=== PATIENT | female | born 1975 | race Two or more races ===

== ENCOUNTER 2020-02-29 22:36 | Inpatient (IN) | payer MEDICAID ==
[~2020-02-29] VITALS: Ht 157.5 cm; Wt 59.3 kg
[2020-02-29 23:52] LABS: Basophils # (auto) 0.1 10 ^3/uL (0-0.2); Basophils % (auto) 1.3 % (0.0-2.0); Eosinophils # (auto) 0.3 10 ^3/uL (0-0.8); Eosinophils % (auto) 2.9 % (0.0-7.0); Hematocrit 36.5 % (36.0-46.0); Hemoglobin 12.2 g/dL (12.2-16.2); Lymphocytes # (auto) 1.8 10 ^3/uL (0.4-5.4); Lymphocytes % (auto) 17.9 % (10.0-50.0); Mean Corpuscular Hgb Conc. 33.5 g/dL (32.0-36.0); Mean Corpuscular Volume 95.4 fL (80.0-100.0); Monocytes # (auto) 0.7 10 ^3/uL (0-1.3); Monocytes % (auto) 6.8 % (0.0-12.0); Neutrophils % (auto) 71.1 % (37.0-80.0); Nucleated Red Blood Cells % 0.1 %; Platelet Count (auto) 237 10^3/uL (140-450); Red Blood Cells 3.82 10^6/uL (4.0-5.20); Red Cell Distribution Width 14.4 % (11.8-14.3); White Blood Cell 9.8 10^3/uL (4.4-10.8)
[2020-03-01 00:11] LABS: Albumin 3.8 g/dL (3.4-5.0); BUN/Creatinine Ratio 3.8; Calcium 7.4 mg/dL (8.5-10.1); Potassium 3.5 mmol/L (3.5-5.1)
[2020-03-01 00:14] LABS: Bilirubin, Total 0.5 mg/dL (0.2-1.0); Total Protein 7.4 g/dL (6.4-8.2)
[2020-03-01 00:20] LABS: Urine Bacteria FEW /hpf (None Seen); Urine Blood 1+ /uL (Negative); Urine Specific Gravity 1.012 (1.001-1.035); Urine WBC 26 /hpf (0 - 5)
[2020-03-01] MEDS ORDERED: metroNIDAZOLE 500MG/100ML 100 ML IV ONE (08:00)
[2020-03-01] MEDS ORDERED: cefTRIAXone 1GM/50ML D5W 50 ML IV ONE (08:00)
[2020-03-01] MEDS ORDERED: LORazepam 0.5 MG TAB PO PRN (15:15)
[2020-03-01] MEDS ORDERED: HYDROcodone-ACET 5/325MG TAB PO PRN (15:15)
[2020-03-01] MEDS ORDERED: MORPHINE SULF INJ 2 MG/ML SYRINGE 1ML IV PRN (15:15)
[2020-03-01] MEDS ORDERED: DOCUSATE SOD 100 MG CAP PO PRN (15:15)
[2020-03-01] MEDS ORDERED: ALUM & MAG HYDROX-SIMETH LIQ(MAALOX) 30 ML PO PRN (15:15)
[2020-03-01] MEDS: SODIUM CHLORIDE 0.9% 1,000 ML IV SCH (15:36)
[2020-03-01] MEDS: MORPHINE SULF INJ 2 MG/ML SYRINGE 1ML IV PRN ×2 (16:38→21:40)
[2020-03-01 17:36] VITALS: BP 140/82
[2020-03-01] MEDS ORDERED: VANCOMYCIN PER PHARMACY 0 MG IV SCH (18:00)
[2020-03-01] MEDS ORDERED: CALCIUM ACETATE 667 MG CAP PO ONE (18:00)
[2020-03-01] MEDS ORDERED: BACL10TA PO (18:08)
[2020-03-01] MEDS ORDERED: GABA100C9 PO (18:08)
[2020-03-01] MEDS ORDERED: CALC0.5C PO (18:08)
[2020-03-01] MEDS ORDERED: CIPR500T4 PO (18:08)
[2020-03-01] MEDS ORDERED: CLON0.1T PO (18:08)
[2020-03-01] MEDS ORDERED: AMLO5TAB15 PO (18:08)
[2020-03-01] MEDS ORDERED: LISI-646 PO (18:08)
[2020-03-01] MEDS ORDERED: FAMOTIDINE 20 MG TAB PO ONE (18:15)
[2020-03-01] MEDS ORDERED: hydrALAZINE HCL 20 MG/ML VL IV PRN (18:15)
[2020-03-01] MEDS ORDERED: VANCOMYCIN 1GM/250ML 250 ML IV ONE (19:00)
[2020-03-01 19:23] LABS: % Iron Saturation 21.3 % (15-50)
[2020-03-01] MEDS: PIPERACILLIN-TAZOB 2.25GM 50 ML IV SCH (21:38)
[2020-03-01] MEDS: ATORVASTATIN 20 MG TAB PO SCH (21:39)
[2020-03-01 22:00] VITALS: BP 145/67
[2020-03-01] MEDS ORDERED: CLINDAMYCIN 600MG IV 50 ML IV SCH (22:00)
[2020-03-01] MEDS: hydrALAZINE HCL 25 MG TAB PO SCH (22:04)
[2020-03-02] MEDS: NITROGLYCERIN 0.4 MG SL TAB SL PRN ×3 (01:17→03:26)
[2020-03-02] MEDS: ONDANSETRON HCL 4 MG/2 ML VIAL IV PRN ×4 (04:27→20:44)
[2020-03-02 05:00] VITALS: BP 140/68
[2020-03-02] MEDS: hydrALAZINE HCL 25 MG TAB PO SCH (05:01)
[2020-03-02] MEDS: MORPHINE SULF INJ 2 MG/ML SYRINGE 1ML IV PRN ×3 (05:02→20:44)
[2020-03-02] MEDS ORDERED: FUROSEMIDE 20 MG/2 ML VIAL IV SCH ×2 (06:00→11:00)
[2020-03-02 07:10] LABS: Basophils # (auto) 0.1 10 ^3/uL (0-0.2); Eosinophils # (auto) 0.3 10 ^3/uL (0-0.8); Hematocrit 34.2 % (36.0-46.0); Hemoglobin 11.5 g/dL (12.2-16.2); Lymphocytes # (auto) 0.7 10 ^3/uL (0.4-5.4); Lymphocytes % (auto) 7.5 % (10.0-50.0); Mean Corpuscular Hemoglobin 31.9 pg (28.0-32.0); Mean Corpuscular Hgb Conc. 33.7 g/dL (32.0-36.0); Mean Corpuscular Volume 94.9 fL (80.0-100.0); Monocytes # (auto) 0.5 10 ^3/uL (0-1.3); Monocytes % (auto) 5.3 % (0.0-12.0); Neutrophils # (auto) 8.3 10 ^3/uL (1.6-8.6); Neutrophils % (auto) 83.2 % (37.0-80.0); Nucleated Red Blood Cells % 0.1 %; Platelet Count (auto) 181 10^3/uL (140-450); Red Cell Distribution Width 14.4 % (11.8-14.3); White Blood Cell 9.9 10^3/uL (4.4-10.8)
[2020-03-02 07:25] LABS: Partial Thromboplastin Time 27.9 sec (23.64-32.05)
[2020-03-02 07:36] LABS: Calcium 6.5 mg/dL (8.5-10.1); Magnesium 2.3 mg/dL (1.6-2.6); Potassium 3.5 mmol/L (3.5-5.1)
[2020-03-02 07:42] LABS: BUN/Creatinine Ratio 4.6; Bilirubin, Total 0.5 mg/dL (0.2-1.0); Phosphorus 6.5 mg/dL (2.5-4.90); Total Protein 5.9 g/dL (6.4-8.2)
[2020-03-02 07:52] LABS: Urine Bacteria NONE SEEN /hpf (None Seen); Urine Blood TRACE /uL (Negative); Urine Specific Gravity 1.009 (1.001-1.035); Urine WBC 40 /hpf (0 - 5)
[2020-03-02] MEDS: SODIUM CHLORIDE 0.9% 1,000 ML IV SCH (07:53)
[2020-03-02 08:00] VITALS: BP 125/69
[2020-03-02] MEDS ORDERED: CALCIUM ACETATE 667 MG CAP PO SCH (08:00)
[2020-03-02 08:12] LABS: Alcohol, Urine < 3.0 mg/dL (0-10); Amphetamine Screen, Urine NEGATIVE (NEGATIVE); Barbiturate Scree,Urine NEGATIVE (NEGATIVE); Benzodiazephine Screen, Urine NEGATIVE (NEGATIVE); Cannabinoid Screen, Urine NEGATIVE (NEGATIVE); Cocaine Screen, Urine NEGATIVE (NEGATIVE); Opiate Scree,Urine NEGATIVE (NEGATIVE); Phencyclidine Screen, Urine NEGATIVE (NEGATIVE)
[2020-03-02] MEDS ORDERED: cefTRIAXone 1GM/50ML D5W 50 ML IV SCH (09:00)
[2020-03-02] MEDS: FAMOTIDINE 20 MG TAB PO SCH (09:30)
[2020-03-02] MEDS: PIPERACILLIN-TAZOB 2.25GM 50 ML IV SCH ×2 (09:30→21:30)
[2020-03-02] MEDS: CHOLECALCIFEROL (VITD3) 1,000UNIT=25mCg TAB PO SCH (09:31)
[2020-03-02] MEDS: ENOXAPARIN SOD 30 MG/0.3 ML SYRINGE SC SCH (09:31)
[2020-03-02] MEDS: ADENOSINE 52 MG in GIVE UN-DILUTED 0 ML IV STA (10:37)
[2020-03-02] MEDS: CALCIUM ACETATE 667 MG CAP PO SCH ×3 (11:00→17:57)
[2020-03-02] MEDS ORDERED: SODIUM CHL 0.9% 1000 ML BAG XX ONE (11:00)
[2020-03-02] MEDS ORDERED: DEXTROSE (50%) 50ML SYRG IV PRN (14:30)
[2020-03-02] MEDS ORDERED: SODIUM CHLORIDE 0.9% 1,000 ML IV SCH (14:30)
[2020-03-02 17:20] VITALS: BP 151/75
[2020-03-02] MEDS: ACCU-CHEK COMFORT CURVE STRIP VI SCH ×2 (17:52→21:31)
[2020-03-02] MEDS: InsuLIN REG 1unit/0.01ml Soln (100units/ml) SC SCH ×2 (17:58→21:34)
[2020-03-02] MEDS: ATORVASTATIN 20 MG TAB PO SCH (21:30)
[2020-03-02] MEDS: METOPROLOL TARTRATE 25 MG TAB PO SCH (21:31)
[2020-03-02 21:35] VITALS: BP 154/77
[2020-03-03 04:54] VITALS: BP 148/84
[2020-03-03] MEDS: InsuLIN REG 1unit/0.01ml Soln (100units/ml) SC SCH ×4 (06:03→22:00)
[2020-03-03] MEDS: ACCU-CHEK COMFORT CURVE STRIP VI SCH ×4 (06:04→22:28)
[2020-03-03 07:10] LABS: Basophils # (auto) 0.1 10 ^3/uL (0-0.2); Basophils % (auto) 0.9 % (0.0-2.0); Eosinophils # (auto) 0.3 10 ^3/uL (0-0.8); Eosinophils % (auto) 3.8 % (0.0-7.0); Hematocrit 34.9 % (36.0-46.0); Hemoglobin 11.6 g/dL (12.2-16.2); Lymphocytes % (auto) 13.5 % (10.0-50.0); Mean Corpuscular Hemoglobin 31.4 pg (28.0-32.0); Mean Corpuscular Hgb Conc. 33.2 g/dL (32.0-36.0); Mean Corpuscular Volume 94.6 fL (80.0-100.0); Monocytes # (auto) 0.5 10 ^3/uL (0-1.3); Monocytes % (auto) 7.6 % (0.0-12.0); Neutrophils # (auto) 5.3 10 ^3/uL (1.6-8.6); Neutrophils % (auto) 74.2 % (37.0-80.0); Platelet Count (auto) 184 10^3/uL (140-450); Red Cell Distribution Width 14.5 % (11.8-14.3); White Blood Cell 7.1 10^3/uL (4.4-10.8)
[2020-03-03 07:50] LABS: Albumin 3.1 g/dL (3.4-5.0); BUN/Creatinine Ratio 2.9; Bilirubin, Total 0.6 mg/dL (0.2-1.0); Calcium 7.3 mg/dL (8.5-10.1); Phosphorus 5.3 mg/dL (2.5-4.90); Total Protein 6.4 g/dL (6.4-8.2)
[2020-03-03 08:00] VITALS: BP 148/78
[2020-03-03] MEDS: CALCIUM ACETATE 667 MG CAP PO SCH ×3 (08:00→18:35)
[2020-03-03] MEDS: ONDANSETRON HCL 4 MG/2 ML VIAL IV PRN (08:12)
[2020-03-03 08:54] VITALS: BP 160/83
[2020-03-03] MEDS: PIPERACILLIN-TAZOB 2.25GM 50 ML IV SCH ×2 (10:48→22:27)
[2020-03-03] MEDS: MORPHINE SULF INJ 2 MG/ML SYRINGE 1ML IV PRN (10:50)
[2020-03-03] MEDS: ENOXAPARIN SOD 30 MG/0.3 ML SYRINGE SC SCH (10:51)
[2020-03-03] MEDS: FAMOTIDINE 20 MG TAB PO SCH (10:52)
[2020-03-03] MEDS: CHOLECALCIFEROL (VITD3) 1,000UNIT=25mCg TAB PO SCH (10:52)
[2020-03-03] MEDS: B-COMPLEX W/ C & FOLIC ACID(NEPHROVITE TAB) PO SCH (10:52)
[2020-03-03] MEDS: LISINOPRIL 5 MG TAB PO SCH (10:53)
[2020-03-03] MEDS: ASPirin-EC 81 mg tab PO SCH (10:53)
[2020-03-03] MEDS: METOPROLOL TARTRATE 25 MG TAB PO SCH ×2 (10:54→22:28)
[2020-03-03 11:35] VITALS: BP 144/76
[2020-03-03 16:44] VITALS: BP 164/75
[2020-03-03] MEDS: PROMETHAZINE HCL 25 MG/ML 1ML IV PRN (17:12)
[2020-03-03 22:00] VITALS: BP 160/90
[2020-03-03] MEDS: ATORVASTATIN 20 MG TAB PO SCH (22:27)
[2020-03-04 04:46] LABS: Basophils # (auto) 0.1 10 ^3/uL (0-0.2); Basophils % (auto) 1.2 % (0.0-2.0); Eosinophils # (auto) 0.4 10 ^3/uL (0-0.8); Eosinophils % (auto) 4.5 % (0.0-7.0); Hematocrit 33.5 % (36.0-46.0); Hemoglobin 11.1 g/dL (12.2-16.2); Lymphocytes # (auto) 1.4 10 ^3/uL (0.4-5.4); Lymphocytes % (auto) 17.3 % (10.0-50.0); Mean Corpuscular Hemoglobin 31.6 pg (28.0-32.0); Mean Corpuscular Hgb Conc. 33.3 g/dL (32.0-36.0); Mean Corpuscular Volume 94.9 fL (80.0-100.0); Monocytes # (auto) 0.8 10 ^3/uL (0-1.3); Monocytes % (auto) 9.5 % (0.0-12.0); Neutrophils # (auto) 5.6 10 ^3/uL (1.6-8.6); Neutrophils % (auto) 67.5 % (37.0-80.0); Platelet Count (auto) 174 10^3/uL (140-450); Red Blood Cells 3.53 10^6/uL (4.0-5.20); Red Cell Distribution Width 14.5 % (11.8-14.3); White Blood Cell 8.3 10^3/uL (4.4-10.8)
[2020-03-04 05:00] VITALS: BP 143/85
[2020-03-04 05:03] LABS: Calcium 7.3 mg/dL (8.5-10.1); Potassium 3.8 mmol/L (3.5-5.1)
[2020-03-04 05:05] LABS: BUN/Creatinine Ratio 3.1
[2020-03-04 05:06] LABS: INR 1.01 (0.9-1.15); Partial Thromboplastin Time 28.8 sec (23.64-32.05)
[2020-03-04] MEDS: InsuLIN REG 1unit/0.01ml Soln (100units/ml) SC SCH ×5 (06:35→23:02)
[2020-03-04] MEDS: ACCU-CHEK COMFORT CURVE STRIP VI SCH ×4 (06:35→21:15)
[2020-03-04] MEDS ORDERED: SODIUM CHL 0.9% 1000 ML BAG XX ONE (07:00)
[2020-03-04] MEDS: CALCIUM ACETATE 667 MG CAP PO SCH ×3 (07:55→18:04)
[2020-03-04 08:00] VITALS: BP 133/65
[2020-03-04 08:39] VITALS: BP 133/65
[2020-03-04] MEDS: FAMOTIDINE 20 MG TAB PO SCH (09:33)
[2020-03-04] MEDS: ASPirin-EC 81 mg tab PO SCH (09:33)
[2020-03-04] MEDS: LISINOPRIL 5 MG TAB PO SCH (09:34)
[2020-03-04] MEDS: B-COMPLEX W/ C & FOLIC ACID(NEPHROVITE TAB) PO SCH (09:34)
[2020-03-04] MEDS: METOPROLOL TARTRATE 25 MG TAB PO SCH ×2 (09:34→21:15)
[2020-03-04] MEDS: ENOXAPARIN SOD 30 MG/0.3 ML SYRINGE SC SCH (09:35)
[2020-03-04] MEDS: CHOLECALCIFEROL (VITD3) 1,000UNIT=25mCg TAB PO SCH (09:35)
[2020-03-04] MEDS: PIPERACILLIN-TAZOB 2.25GM 50 ML IV SCH ×2 (09:35→21:14)
[2020-03-04] MEDS ORDERED: ANGIOMAX 250 MG VIAL IV ONE (11:21)
[2020-03-04] MEDS ORDERED: MIDAZOLAM HCL 1MG/1ML-2 ML VIAL ONE (11:22)
[2020-03-04] MEDS ORDERED: SODIUM CHL 0.9% 0 ML ONE (11:22)
[2020-03-04] MEDS ORDERED: VERAPAMIL 2.5MG/ML INJ 2ML VIAL IV ONE (11:22)
[2020-03-04] MEDS ORDERED: LIDOCAINE 2%HCL (LOCAL ANESTH.) INJ 20ML MDV ONE (11:22)
[2020-03-04] MEDS ORDERED: NITROGLYCERIN 50MG/250ML 250 ML IV ONE (11:22)
[2020-03-04] MEDS ORDERED: fentaNYL CITRATE 100 MCG/2 ML VL ONE (11:22)
[2020-03-04] MEDS ORDERED: IOHEXOL 350 MG/ML 100ML IJ ONE (11:23)
[2020-03-04 11:57] LABS: Hepatitis B Surface Antigen Negative (Negative); Hepatitis C Antibody Negative (Negative)
[2020-03-04] MEDS ORDERED: HEPARIN SODIUM (PORCINE) 5000 UNITS/ML 1ML VIAL ONE (12:00)
[2020-03-04] MEDS ORDERED: hydrALAZINE HCL 20 MG/ML VL ONE (12:15)
[2020-03-04 12:43] VITALS: BP 159/74
[2020-03-04] MEDS ORDERED: GOLYTELY 4L KIT PO ONE (16:00)
[2020-03-04 16:15] VITALS: BP 138/74
[2020-03-04] MEDS: ATORVASTATIN 20 MG TAB PO SCH (21:14)
[2020-03-04 22:12] VITALS: BP 118/66
[2020-03-05] MEDS: PROMETHAZINE HCL 25 MG/ML 1ML IV PRN (01:57)
[2020-03-05] MEDS: ACCU-CHEK COMFORT CURVE STRIP VI SCH ×3 (04:56→17:00)
[2020-03-05] MEDS: InsuLIN REG 1unit/0.01ml Soln (100units/ml) SC SCH ×3 (04:57→17:00)
[2020-03-05 05:10] VITALS: BP 105/53
[2020-03-05] MEDS ORDERED: GOLYTELY 4L KIT PO ONE (06:00)
[2020-03-05] MEDS ORDERED: MAGNESIUM CITRATE SOLUTION 300 ML BTL PO ONE (06:00)
[2020-03-05] MEDS: CALCIUM ACETATE 667 MG CAP PO SCH ×3 (08:00→17:08)
[2020-03-05 09:00] VITALS: BP 106/48
[2020-03-05] MEDS ORDERED: SODIUM CHLORIDE LOCK 10 ML ONE (09:12)
[2020-03-05] MEDS ORDERED: diphenhdrAMINE HCL 50 MG/1 ML VL ONE (09:12)
[2020-03-05] MEDS: METOPROLOL TARTRATE 25 MG TAB PO SCH (09:50)
[2020-03-05] MEDS: ENOXAPARIN SOD 30 MG/0.3 ML SYRINGE SC SCH (09:51)
[2020-03-05] MEDS: LISINOPRIL 5 MG TAB PO SCH (09:51)
[2020-03-05] MEDS: CHOLECALCIFEROL (VITD3) 1,000UNIT=25mCg TAB PO SCH (09:52)
[2020-03-05] MEDS: FAMOTIDINE 20 MG TAB PO SCH (09:52)
[2020-03-05] MEDS: B-COMPLEX W/ C & FOLIC ACID(NEPHROVITE TAB) PO SCH (09:52)
[2020-03-05] MEDS: PIPERACILLIN-TAZOB 2.25GM 50 ML IV SCH (09:52)
[2020-03-05] MEDS: ASPirin-EC 81 mg tab PO SCH (09:52)
[2020-03-05] MEDS ORDERED: levoFLOXacin 500 MG TAB PO SCH (12:45)
[2020-03-05] MEDS ORDERED: CHOL1000 PO (12:51)
[2020-03-05] MEDS ORDERED: LEVO500T21 PO (12:51)
[2020-03-05] MEDS ORDERED: LISI-646 PO (12:51)
[2020-03-05] MEDS ORDERED: CALC667C5 PO (12:51)
[2020-03-05] MEDS ORDERED: NEPVITT PO (12:51)
[2020-03-05] MEDS ORDERED: METR500T PO (12:51)
[2020-03-05 13:00] VITALS: BP 97/57
[2020-03-05] MEDS ORDERED: metroNIDAZOLE 500 MG TAB PO SCH (14:00)
[2020-03-05] MEDS: fentaNYL CITRATE 100 MCG/2 ML VL ONE ×3 (14:22→14:32)
[2020-03-05] MEDS: MIDAZOLAM HCL 5 MG/ML-1ML VIAL ONE ×3 (14:22→14:36)
[2020-03-05 16:00] VITALS: BP 122/58
[2020-03-05 16:39] VITALS: BP 140/75
[2020-03-06] MEDS ORDERED: SODIUM CHL 0.9% 1000 ML BAG XX ONE (07:00)
== END 2020-03-05 17:00 | disposition home or self-care (01) | DRG 249 ==
LOC: ER 22:43 → TELE 22:44 → TELE-CENTR 03-01 17:42
PROVIDERS: ADMIT Hospitalist; ATTEND Internal Medicine
PROC: 5A1D70Z Performance of Urinary Filtration, Intermittent, Less than 6 Hours Per Day (ICD-10-PCS; 2020-03-02)
PROC: 4A023N7 Measurement of Cardiac Sampling and Pressure, Left Heart, Percutaneous Approach (ICD-10-PCS; principal; 2020-03-04)
PROC: B2111ZZ Fluoroscopy of Multiple Coronary Arteries using Low Osmolar Contrast (ICD-10-PCS; 2020-03-04)
PROC: B2151ZZ Fluoroscopy of Left Heart using Low Osmolar Contrast (ICD-10-PCS; 2020-03-04)
PROC: 5A1D70Z Performance of Urinary Filtration, Intermittent, Less than 6 Hours Per Day (ICD-10-PCS; 2020-03-04)
PROC: 0DJD8ZZ Inspection of Lower Intestinal Tract, Via Natural or Artificial Opening Endoscopic (ICD-10-PCS; 2020-03-05)
DX: A09 Infectious gastroenteritis and colitis, unspecified (principal); I13.2 Hypertensive heart and chronic kidney disease with heart failure and with stage 5 chronic kidney disease, or end stage renal disease; E86.0 Dehydration; N18.6 End stage renal disease; Z99.2 Dependence on renal dialysis; R79.89 Other specified abnormal findings of blood chemistry; K21.9 Gastro-esophageal reflux disease without esophagitis; K29.60 Other gastritis without bleeding; E55.9 Vitamin D deficiency, unspecified; E87.1 Hypo-osmolality and hyponatremia; D63.1 Anemia in chronic kidney disease; E11.22 Type 2 diabetes mellitus with diabetic chronic kidney disease; E78.5 Hyperlipidemia, unspecified; I25.10 Atherosclerotic heart disease of native coronary artery without angina pectoris; I50.33 Acute on chronic diastolic (congestive) heart failure; Z20.828 Contact with and (suspected) exposure to other viral communicable diseases; Z90.49 Acquired absence of other specified parts of digestive tract; Z79.4 Long term (current) use of insulin; K58.9 Irritable bowel syndrome, unspecified; E11.40 Type 2 diabetes mellitus with diabetic neuropathy, unspecified
CPT/HCPCS: 36415; 45378; 71045; 71250; 74176; 78452; 80048; 80053; 80061; 80202; 80307; 81001; 81025; 82150; 82306; 82378; 82565; 82962; 83036; 83540; 83550; 83605; 83690; 83735; 83880; 83970; 84100; 84443; 84484; 84702; 85025; 85610; 85730; 86803; 87040; 87086; 87340; 90935; 93005; 93017; 93306; 93458; 96365; 96368; 99152; G0378; J0153; J0696; J1642; J1815; J2250; J2405; J2543; J3490

== ENCOUNTER 2021-01-08 09:45 | Observation (INO) | payer MEDICAID ==
[~2021-01-08] VITALS: Ht 157.5 cm; Wt 73.5 kg
[2021-01-08] VITALS (13 sets, daily range): BP systolic 131–152; BP diastolic 60–83
[~2021-01-08 09:45] MED LIST: B-CO1TAB33 PO; BACL10TA PO; CALC0.5C PO; CALC667C5 PO; CHOL1TAB30 PO; CIPR500T4 PO; GABA100C9 PO; LEVO500T31 PO; LISI20TA28 PO; METR500T PO
[2021-01-08 10:09] LABS: Basophils # (auto) 0.1 10 ^3/uL (0-0.2); Eosinophils # (auto) 0.2 10 ^3/uL (0-0.8); Lymphocytes # (auto) 1.1 10 ^3/uL (0.4-5.4); Lymphocytes % (auto) 16.2 % (10.0-50.0); Monocytes # (auto) 0.3 10 ^3/uL (0-1.3)
[2021-01-08 10:11] LABS: Eosinophils % (auto) 3.4 % (0.0-7.0); Hematocrit 20.2 % (36.0-46.0); Mean Corpuscular Hemoglobin 30.1 pg (28.0-32.0); Mean Corpuscular Hgb Conc. 32.8 g/dL (32.0-36.0); Mean Corpuscular Volume 91.6 fL (80.0-100.0); Monocytes % (auto) 5.3 % (0.0-12.0); Neutrophils # (auto) 4.8 10 ^3/uL (1.6-8.6); Neutrophils % (auto) 74.1 % (37.0-80.0); Platelet Count (auto) 153 10^3/uL (140-450); Red Blood Cells 2.21 10^6/uL (4.0-5.20); Red Cell Distribution Width 16.7 % (11.8-14.3); White Blood Cell 6.5 10^3/uL (4.4-10.8)
[2021-01-08 10:15] LABS: Hemoglobin 6.6 g/dL (12.2-16.2)
[2021-01-08 10:22] LABS: Albumin 3.3 g/dL (3.4-5.0); Anion Gap 9 (5-15); BUN/Creatinine Ratio 4.9; Blood Urea Nitrogen 13 mg/dL (7-18); Calcium 6.8 mg/dL (8.5-10.1); Carbon Dioxide 24 mmol/L (21-32); Chloride 104 mmol/L (98-107); GFR African American 25 mL/min; GFR Non-African American 20 mL/min; Glucose 129 mg/dL (74-106); Potassium 3.2 mmol/L (3.5-5.1); Sodium 137 mmol/L (136-145)
[2021-01-08 10:27] LABS: Alanine Aminotransferase 93 U/L (13-56); Alkaline Phosphatase 126 U/L (45-117); Aspartate Aminotransferase 29 U/L (15-37); Bilirubin, Total 0.3 mg/dL (0.2-1.0); Total Protein 6.6 g/dL (6.4-8.2)
[2021-01-08] MEDS ORDERED: SODIUM CHLORIDE 0.9% 1,000 ML IV ONE (10:30)
[2021-01-08 11:00] LABS: INR 0.99 (0.9-1.15); Partial Thromboplastin Time 27.9 sec (23.0-31.2)
[2021-01-08] MEDS ORDERED: POTASSIUM EFFERVESENT TAB 25 MEQ PO ONE (13:15)
[2021-01-08] MEDS ORDERED: MORPHINE SULF INJ 2 MG/ML SYRINGE 1ML IV PRN (13:45)
[2021-01-08] MEDS ORDERED: NITROGLYCERIN 0.4 MG SL TAB SL PRN (13:45)
[2021-01-08] MEDS ORDERED: traMADol HCL 50 MG TAB PO PRN (13:45)
[2021-01-08] MEDS ORDERED: DEXTROSE (50%) 50ML SYRG IV PRN (13:45)
[2021-01-08] MEDS ORDERED: ACETAMINOPHEN 500 MG TAB PO PRN (13:45)
[2021-01-08 15:41] LABS: Urine Bacteria FEW /hpf (None Seen); Urine Blood 2+ /uL (Negative); Urine Specific Gravity 1.012 (1.001-1.035); Urine WBC 1345 /hpf (0 - 5); Urine WBC Clumps PRESENT /hpf (None Seen)
[2021-01-08] MEDS: InsuLIN REG 1unit/0.01ml Soln (100units/ml) SC SCH ×2 (17:00→21:58)
[2021-01-08] MEDS: ACCU-CHEK COMFORT CURVE STRIP VI SCH ×2 (17:00→21:56)
[2021-01-08] MEDS: CALCIUM ACETATE 667 MG CAP PO SCH (18:20)
[2021-01-08] MEDS ORDERED: INSU100I27 SC (18:26)
[2021-01-08] MEDS: GABAPENTIN 100 MG CAP PO SCH (21:54)
[2021-01-08] MEDS: FAMOTIDINE 20 MG TAB PO SCH (21:54)
[2021-01-08 23:32] LABS: Hematocrit 25.4 % (36.0-46.0); Hemoglobin 8.8 g/dL (12.2-16.2)
[2021-01-09 05:00] VITALS: BP 136/57
[2021-01-09 05:26] LABS: Hematocrit 24.8 % (36.0-46.0); Hemoglobin 8.5 g/dL (12.2-16.2)
[2021-01-09] MEDS: ACCU-CHEK COMFORT CURVE STRIP VI SCH ×4 (06:17→21:03)
[2021-01-09] MEDS: InsuLIN REG 1unit/0.01ml Soln (100units/ml) SC SCH ×4 (06:18→21:02)
[2021-01-09] MEDS: CALCIUM ACETATE 667 MG CAP PO SCH ×3 (08:14→17:52)
[2021-01-09 08:48] VITALS: BP 139/70
[2021-01-09] MEDS: BACLOFEN 10 MG TAB PO SCH (09:49)
[2021-01-09] MEDS: B-COMPLEX W/ C & FOLIC ACID(NEPHROVITE TAB) PO SCH (09:49)
[2021-01-09] MEDS: LISINOPRIL 20 MG TAB PO SCH (09:49)
[2021-01-09 13:00] VITALS: BP 149/58
[2021-01-09 16:46] VITALS: BP 161/74
[2021-01-09] MEDS: FAMOTIDINE 20 MG TAB PO SCH (21:02)
[2021-01-09] MEDS: GABAPENTIN 100 MG CAP PO SCH (21:02)
[2021-01-09] MEDS: ONDANSETRON HCL 4 MG/2 ML VIAL IV PRN (21:02)
[2021-01-09 22:00] VITALS: BP 156/77
[2021-01-10 05:00] VITALS: BP 157/81
[2021-01-10] MEDS: ACCU-CHEK COMFORT CURVE STRIP VI SCH ×3 (06:17→17:00)
[2021-01-10] MEDS: InsuLIN REG 1unit/0.01ml Soln (100units/ml) SC SCH ×3 (06:18→17:00)
[2021-01-10 06:24] LABS: Basophils # (auto) 0.1 10 ^3/uL (0-0.2); Eosinophils # (auto) 0.3 10 ^3/uL (0-0.8); Eosinophils % (auto) 3.9 % (0.0-7.0); Hematocrit 25.3 % (36.0-46.0); Hemoglobin 8.6 g/dL (12.2-16.2); Lymphocytes # (auto) 1.2 10 ^3/uL (0.4-5.4); Lymphocytes % (auto) 16.7 % (10.0-50.0); Mean Corpuscular Hemoglobin 31.6 pg (28.0-32.0); Mean Corpuscular Hgb Conc. 33.8 g/dL (32.0-36.0); Mean Corpuscular Volume 93.5 fL (80.0-100.0); Monocytes # (auto) 0.5 10 ^3/uL (0-1.3); Monocytes % (auto) 7.1 % (0.0-12.0); Neutrophils # (auto) 4.9 10 ^3/uL (1.6-8.6); Neutrophils % (auto) 71.3 % (37.0-80.0); Platelet Count (auto) 113 10^3/uL (140-450); Red Blood Cells 2.71 10^6/uL (4.0-5.20); Red Cell Distribution Width 16.1 % (11.8-14.3); White Blood Cell 6.9 10^3/uL (4.4-10.8)
[2021-01-10 06:42] LABS: BUN/Creatinine Ratio 7.9; Calcium 6.1 mg/dL (8.5-10.1); Magnesium 2.4 mg/dL (1.6-2.6); Potassium 4.9 mmol/L (3.5-5.1)
[2021-01-10] MEDS: B-COMPLEX W/ C & FOLIC ACID(NEPHROVITE TAB) PO SCH (08:39)
[2021-01-10] MEDS: BACLOFEN 10 MG TAB PO SCH (08:39)
[2021-01-10] MEDS: CALCIUM ACETATE 667 MG CAP PO SCH ×3 (08:39→17:40)
[2021-01-10] MEDS: LISINOPRIL 20 MG TAB PO SCH (08:41)
[2021-01-10] MEDS: ONDANSETRON HCL 4 MG/2 ML VIAL IV PRN ×2 (08:42→12:35)
[2021-01-10 09:00] VITALS: BP 151/73
[2021-01-10] MEDS ORDERED: traMADol HCL 50 MG TAB PO PRN (10:00)
[2021-01-10 13:00] VITALS: BP 158/84
[2021-01-10] MEDS ORDERED: FER325T PO (14:06)
[2021-01-12] MEDS ORDERED: FAMOTIDINE 20 MG TAB PO SCH (10:00)
== END 2021-01-10 18:00 | disposition home or self-care (01) ==
LOC: ER 09:45 → TELE-WESTW 13:41 → UNDODISOB 01-10 17:38
PROVIDERS: ADMIT Internal Medicine; ATTEND Internal Medicine
DX: D62 Acute posthemorrhagic anemia (principal); Z20.822 Contact with and (suspected) exposure to COVID-19; E87.6 Hypokalemia; I13.2 Hypertensive heart and chronic kidney disease with heart failure and with stage 5 chronic kidney disease, or end stage renal disease; E11.22 Type 2 diabetes mellitus with diabetic chronic kidney disease; I50.32 Chronic diastolic (congestive) heart failure; N18.6 End stage renal disease; D63.8 Anemia in other chronic diseases classified elsewhere; N39.0 Urinary tract infection, site not specified; E44.1 Mild protein-calorie malnutrition; K64.8 Other hemorrhoids; E55.9 Vitamin D deficiency, unspecified; E78.5 Hyperlipidemia, unspecified; Z82.49 Family history of ischemic heart disease and other diseases of the circulatory system; Z99.2 Dependence on renal dialysis; Z79.899 Other long term (current) drug therapy
CPT/HCPCS: 36415; 36430; 71046; 80048; 80053; 81001; 82962; 83036; 83735; 83880; 84484; 85014; 85018; 85025; 85045; 85610; 85730; 86850; 86900; 86901; 86920; 87081; 87086; 87426; 93005; 96361; 96372; 96374; 96376; 99285; G0378; J1815; J2405; J7030; P9016

== ENCOUNTER → 2021-02-05 | Emergency (ER) | payer MEDICAID ==
[~2021-02-05] VITALS: Ht 154.9 cm; Wt 68.5 kg
[~2021-02-05] MED LIST changes: -CIPR500T4 PO; +FER325T PO; +INSU100I27 SC; -LEVO500T31 PO; -METR500T PO
[2021-02-05 09:08] VITALS: BP 168/77
[2021-02-05 11:09] LABS: Urine Bacteria NONE SEEN /hpf (None Seen); Urine Blood TRACE /uL (Negative); Urine Specific Gravity 1.009 (1.001-1.035); Urine WBC 18 /hpf (0 - 5)
[2021-02-05 11:19] LABS: Basophils # (auto) 0.1 10 ^3/uL (0-0.2); Basophils % (auto) 0.8 % (0.0-2.0); Eosinophils # (auto) 0.1 10 ^3/uL (0-0.8); Eosinophils % (auto) 1.8 % (0.0-7.0); Hematocrit 28.3 % (36.0-46.0); Hemoglobin 9.4 g/dL (12.2-16.2); Lymphocytes # (auto) 1.2 10 ^3/uL (0.4-5.4); Lymphocytes % (auto) 18.9 % (10.0-50.0); Mean Corpuscular Hemoglobin 30.9 pg (28.0-32.0); Mean Corpuscular Hgb Conc. 33.1 g/dL (32.0-36.0); Mean Corpuscular Volume 93.3 fL (80.0-100.0); Monocytes # (auto) 0.3 10 ^3/uL (0-1.3); Neutrophils # (auto) 4.7 10 ^3/uL (1.6-8.6); Neutrophils % (auto) 73.5 % (37.0-80.0); Nucleated Red Blood Cells % 0.1 %; Platelet Count (auto) 179 10^3/uL (140-450); Red Blood Cells 3.03 10^6/uL (4.0-5.20); Red Cell Distribution Width 15.6 % (11.8-14.3); White Blood Cell 6.4 10^3/uL (4.4-10.8)
[2021-02-05 11:31] LABS: Albumin 3.1 g/dL (3.4-5.0); Calcium 6.9 mg/dL (8.5-10.1); Magnesium 2.6 mg/dL (1.6-2.6); Potassium 3.6 mmol/L (3.5-5.1)
[2021-02-05 11:38] LABS: BUN/Creatinine Ratio 4.7; Bilirubin, Total 0.5 mg/dL (0.2-1.0); Total Protein 6.2 g/dL (6.4-8.2)
== END | disposition left against medical advice (07) ==
LOC: ER 09:04
DX: R11.2 Nausea with vomiting, unspecified (principal); Z53.21 Procedure and treatment not carried out due to patient leaving prior to being seen by health care provider
CPT/HCPCS: 36415; 80053; 81001; 83735; 84484; 85025

== ENCOUNTER 2021-03-30 13:19 | Emergency (ER) | payer MEDICAID ==
[~2021-03-30] VITALS: Ht 157.5 cm; Wt 65.8 kg
[2021-03-30] MEDS ORDERED: MORPHINE SULFATE 4 MG/ML SYR/VIAL IV ONE (13:45)
[2021-03-30] MEDS ORDERED: hydrALAZINE HCL 20 MG/ML VL IV ONE (13:45)
[2021-03-30] MEDS ORDERED: METOCLOPRAMIDE HCL 5MG/ml INJ 2ml VIAL IV ONE (13:45)
[2021-03-30] MEDS ORDERED: SODIUM CHLORIDE 0.9% 1,000 ML IV ONE (13:45)
[2021-03-30 15:22] LABS: Basophils # (auto) 0.1 10 ^3/uL (0-0.2); Basophils % (auto) 0.9 % (0.0-2.0); Eosinophils # (auto) 0 10 ^3/uL (0-0.8); Eosinophils % (auto) 0.6 % (0.0-7.0); Hematocrit 31.3 % (36.0-46.0); Hemoglobin 10.5 g/dL (12.2-16.2); Lymphocytes # (auto) 1.1 10 ^3/uL (0.4-5.4); Lymphocytes % (auto) 14.4 % (10.0-50.0); Mean Corpuscular Hemoglobin 31.1 pg (28.0-32.0); Mean Corpuscular Hgb Conc. 33.5 g/dL (32.0-36.0); Mean Corpuscular Volume 92.9 fL (80.0-100.0); Monocytes # (auto) 0.6 10 ^3/uL (0-1.3); Monocytes % (auto) 7.5 % (0.0-12.0); Neutrophils # (auto) 5.7 10 ^3/uL (1.6-8.6); Neutrophils % (auto) 76.6 % (37.0-80.0); Red Blood Cells 3.37 10^6/uL (4.0-5.20); Red Cell Distribution Width 15.3 % (11.8-14.3); White Blood Cell 7.4 10^3/uL (4.4-10.8)
[2021-03-30 15:46] LABS: Albumin 3.1 g/dL (3.4-5.0); BUN/Creatinine Ratio 3.9; Calcium 7.6 mg/dL (8.5-10.1); Magnesium 3.2 mg/dL (1.6-2.6); Potassium 3.3 mmol/L (3.5-5.1)
[2021-03-30 15:55] LABS: Bilirubin, Total 0.8 mg/dL (0.2-1.0); Total Protein 6.3 g/dL (6.4-8.2)
[2021-03-30] MEDS ORDERED: POTASSIUM EFFERVESENT TAB 25 MEQ PO ONE (17:30)
[2021-03-30 18:11] VITALS: BP 117/82
[2021-03-30] MEDS ORDERED: SODIUM CHLORIDE 0.9% 500 ML IV ONE (18:30)
[2021-03-30] MEDS ORDERED: PROCHLORPERAZINE EDISYLATE 5 MG/ML 2ML VIAL IV ONE (18:30)
== END 2021-03-30 20:16 | disposition left against medical advice (07) ==
LOC: EDUNIT# 13:19 → ER 13:19 → EDBD 13:19 → ER 20:16
DX: R11.2 Nausea with vomiting, unspecified (principal); E87.6 Hypokalemia; E46 Unspecified protein-calorie malnutrition; I12.0 Hypertensive chronic kidney disease with stage 5 chronic kidney disease or end stage renal disease; E11.22 Type 2 diabetes mellitus with diabetic chronic kidney disease; N18.6 End stage renal disease; Z99.2 Dependence on renal dialysis; Z86.2 Personal history of diseases of the blood and blood-forming organs and certain disorders involving the immune mechanism; Z68.26 Body mass index [BMI] 26.0-26.9, adult; Z90.49 Acquired absence of other specified parts of digestive tract; Z79.899 Other long term (current) drug therapy; Z79.4 Long term (current) use of insulin
CPT/HCPCS: 36415; 71045; 74176; 80053; 82150; 83690; 83735; 84443; 84484; 84702; 85025; 93005; 96361; 96374; 96375; 99285; J0360; J0780; J2270; J2765; J7030; J7040

== ENCOUNTER 2021-04-26 19:24 | Inpatient (IN) | payer MEDICAID ==
[~2021-04-26] VITALS: Ht 157.5 cm; Wt 29.8 kg
[2021-04-26] MEDS ORDERED: ONDANSETRON HCL 4 MG/2 ML VIAL IV ONE (19:45)
[2021-04-26] MEDS ORDERED: MORPHINE SULFATE INJECTION 2 MG/ML SYRG IV ONE (19:45)
[2021-04-26] MEDS ORDERED: cloNIDine HCL 0.1 MG TAB PO ONE (19:45)
[2021-04-26 20:05] LABS: Basophils # (auto) 0.1 10 ^3/uL (0-0.2); Eosinophils # (auto) 0.1 10 ^3/uL (0-0.8); Eosinophils % (auto) 2.6 % (0.0-7.0); Hemoglobin 11.3 g/dL (12.2-16.2); Lymphocytes # (auto) 0.3 10 ^3/uL (0.4-5.4); Lymphocytes % (auto) 7.5 % (10.0-50.0); Mean Corpuscular Hemoglobin 29.3 pg (28.0-32.0); Mean Corpuscular Hgb Conc. 32.2 g/dL (32.0-36.0); Mean Corpuscular Volume 91.3 fL (80.0-100.0); Monocytes # (auto) 0.3 10 ^3/uL (0-1.3); Monocytes % (auto) 6.3 % (0.0-12.0); Neutrophils # (auto) 3.3 10 ^3/uL (1.6-8.6); Neutrophils % (auto) 81.6 % (37.0-80.0); Nucleated Red Blood Cells % 0.1 %; Red Blood Cells 3.84 10^6/uL (4.0-5.20); Red Cell Distribution Width 15.3 % (11.8-14.3); White Blood Cell 4.1 10^3/uL (4.4-10.8)
[2021-04-26 20:27] LABS: Albumin 3.3 g/dL (3.4-5.0); Calcium 7.9 mg/dL (8.5-10.1); Potassium 4.4 mmol/L (3.5-5.1)
[2021-04-26 20:30] LABS: BUN/Creatinine Ratio 5.1; Bilirubin, Total 0.3 mg/dL (0.2-1.0); Total Protein 6.7 g/dL (6.4-8.2)
[2021-04-26] MEDS ORDERED: NITROGLYCERIN 0.4 MG SL TAB SL PRN (22:15)
[2021-04-26] MEDS ORDERED: MORPHINE SULFATE INJECTION 2 MG/ML SYRG IV PRN (22:15)
[2021-04-26] MEDS ORDERED: ACETAMINOPHEN 325 MG TAB PO PRN (22:15)
[2021-04-27 05:42] LABS: Basophils # (auto) 0.1 10 ^3/uL (0-0.2); Basophils % (auto) 1.8 % (0.0-2.0); Eosinophils # (auto) 0.1 10 ^3/uL (0-0.8); Eosinophils % (auto) 2.7 % (0.0-7.0); Hematocrit 36.6 % (36.0-46.0); Hemoglobin 11.4 g/dL (12.2-16.2); Lymphocytes # (auto) 0.8 10 ^3/uL (0.4-5.4); Lymphocytes % (auto) 23.9 % (10.0-50.0); Mean Corpuscular Hemoglobin 29.6 pg (28.0-32.0); Mean Corpuscular Hgb Conc. 31.2 g/dL (32.0-36.0); Monocytes # (auto) 0.2 10 ^3/uL (0-1.3); Neutrophils # (auto) 2.1 10 ^3/uL (1.6-8.6); Neutrophils % (auto) 64.6 % (37.0-80.0); Red Blood Cells 3.86 10^6/uL (4.0-5.20); Red Cell Distribution Width 15.8 % (11.8-14.3); White Blood Cell 3.2 10^3/uL (4.4-10.8)
[2021-04-27 06:00] LABS: Potassium 4.6 mmol/L (3.5-5.1)
[2021-04-27] MEDS: cloNIDine HCL 0.1 MG TAB PO SCH ×3 (06:01→22:09)
[2021-04-27 06:20] LABS: Albumin 3.1 g/dL (3.4-5.0); BUN/Creatinine Ratio 5.1; Bilirubin, Total 0.3 mg/dL (0.2-1.0); Calcium 7.7 mg/dL (8.5-10.1); Total Protein 6.6 g/dL (6.4-8.2)
[2021-04-27] MEDS ORDERED: ONDANSETRON HCL 4 MG/2 ML VIAL IV PRN (20:45)
[2021-04-27] MEDS ORDERED: METOCLOPRAMIDE HCL 10 MG TAB PO SCH (22:00)
[2021-04-27] MEDS ORDERED: METOCLOPRAMIDE HCL 10 MG TAB PO ONE (22:00)
[2021-04-27] MEDS: HYDROcodone-ACET 5/325MG TAB PO PRN (22:07)
[2021-04-28] MEDS ORDERED: DEXTROSE (50%) 50ML SYRG IV PRN ×2 (00:30→07:45)
[2021-04-28] MEDS ORDERED: InsuLIN REG 1unit/0.01ml Soln (100units/ml) ONE (00:58)
[2021-04-28] MEDS: METOCLOPRAMIDE HCL 10 MG TAB PO SCH ×2 (05:39→13:51)
[2021-04-28] MEDS: cloNIDine HCL 0.1 MG TAB PO SCH ×2 (05:40→13:48)
[2021-04-28 05:49] LABS: Hematocrit 32.2 % (36.0-46.0); Hemoglobin 10.2 g/dL (12.2-16.2)
[2021-04-28] MEDS: InsuLIN REG 1unit/0.01ml Soln (100units/ml) SC SCH ×4 (05:52→17:00)
[2021-04-28] MEDS: ACCU-CHEK COMFORT CURVE STRIP VI SCH ×4 (05:52→17:00)
[2021-04-28] MEDS ORDERED: SODIUM CHL 0.9% 1000 ML BAG XX ONE (07:00)
[2021-04-28] MEDS ORDERED: LISINOPRIL 10 MG TAB PO SCH (11:45)
[2021-04-28] MEDS ORDERED: amLODIPine BESYLATE 5 MG TAB PO SCH (11:45)
[2021-04-28] MEDS: HYDROcodone-ACET 5/325MG TAB PO PRN ×2 (12:00→17:35)
[2021-04-28] MEDS: hydrALAZINE HCL 20 MG/ML VL IV PRN ×2 (13:49→17:34)
[2021-04-28] MEDS ORDERED: DexAMETHasone INJECTION 10 MG in D5W 5% 50 ML IV SCH (13:54)
[2021-04-28 18:00] VITALS: BP 163/73
[2021-04-28] MEDS ORDERED: AMLO-496 PO (18:31)
[2021-04-28] MEDS ORDERED: HYDR10TA26 PO (18:31)
[2021-04-28] MEDS ORDERED: LISI20TA28 PO (18:31)
[2021-04-28] MEDS ORDERED: EPOETIN ALFA-EPBX 10,000 UNIT/1ML VIAL SC ONE ×2 (21:00)
== END 2021-04-28 19:27 | disposition home or self-care (01) | DRG 199 ==
LOC: EDUNIT# 19:24 → EDBD 19:24 → ER 19:32 → TELE 22:07
PROVIDERS: ADMIT Nurse Practitioner Family; ATTEND Nurse Practitioner Family
PROC: 5A1D70Z Performance of Urinary Filtration, Intermittent, Less than 6 Hours Per Day (ICD-10-PCS; principal; 2021-04-28)
PROC: 05HC33Z Insertion of Infusion Device into Left Basilic Vein, Percutaneous Approach (ICD-10-PCS; 2021-04-28)
PROC: B54NZZA Ultrasonography of Left Upper Extremity Veins, Guidance (ICD-10-PCS; 2021-04-28)
DX: I16.0 Hypertensive urgency (principal); G93.40 Encephalopathy, unspecified; N18.6 End stage renal disease; D63.1 Anemia in chronic kidney disease; E11.22 Type 2 diabetes mellitus with diabetic chronic kidney disease; G43.909 Migraine, unspecified, not intractable, without status migrainosus; I12.0 Hypertensive chronic kidney disease with stage 5 chronic kidney disease or end stage renal disease; E78.5 Hyperlipidemia, unspecified; G89.29 Other chronic pain; M54.5 Low back pain; Z20.822 Contact with and (suspected) exposure to COVID-19; E11.40 Type 2 diabetes mellitus with diabetic neuropathy, unspecified; Z79.899 Other long term (current) drug therapy; Z82.49 Family history of ischemic heart disease and other diseases of the circulatory system; Z99.2 Dependence on renal dialysis; Z83.3 Family history of diabetes mellitus; Z87.820 Personal history of traumatic brain injury; Z90.49 Acquired absence of other specified parts of digestive tract
CPT/HCPCS: 36415; 70450; 70551; 74176; 80053; 82306; 82962; 83036; 83880; 83970; 84100; 85014; 85018; 85025; 87426; 90935; 93005; 96374; 96375; 99291; G0378; J1100; J1815; J2405; J7060

== ENCOUNTER 2022-05-25 09:09 | Inpatient (IN) | payer MEDICAID ==
[~2022-05-25] VITALS: Ht 154.9 cm; Wt 66.0 kg
[~2022-05-25 09:09] MED LIST changes: +AMLO-496 PO; +HYDR10TA26 PO
[2022-05-25] MEDS ORDERED: MORPHINE SULFATE INJ 2 MG/ml SYRG IV ONE ×2 (10:00→13:45)
[2022-05-25] MEDS ORDERED: LIDOCAINE VISCOUS 2% 15ML UD PO ONE (10:00)
[2022-05-25] MEDS ORDERED: ALUM & MAG HYDROX-SIMETH LIQ(MAALOX) 30 ML PO ONE (10:00)
[2022-05-25] MEDS ORDERED: FAMOTIDINE (10MG/ML) 2ML VL IV ONE (10:00)
[2022-05-25] MEDS ORDERED: ONDANSETRON HCL 4 MG/2 ML VIAL IV ONE ×2 (10:00→13:45)
[2022-05-25] MEDS ORDERED: hydrALAZINE HCL 20 MG/ML VL IV ONE (10:15)
[2022-05-25 10:53] LABS: Basophils # (auto) 0 10 ^3/uL (0-0.2); Basophils % (auto) 0.8 % (0.0-2.0); Eosinophils # (auto) 0 10 ^3/uL (0-0.8); Eosinophils % (auto) 0.6 % (0.0-7.0); Hematocrit 37.6 % (36.0-46.0); Hemoglobin 12.1 g/dL (12.2-16.2); Lymphocytes # (auto) 0.5 10 ^3/uL (0.4-5.4); Mean Corpuscular Hgb Conc. 32.2 g/dL (32.0-36.0); Mean Corpuscular Volume 90.2 fL (80.0-100.0); Monocytes # (auto) 0.2 10 ^3/uL (0-1.3); Monocytes % (auto) 4.3 % (0.0-12.0); Neutrophils # (auto) 4.2 10 ^3/uL (1.6-8.6); Neutrophils % (auto) 84.3 % (37.0-80.0); Red Blood Cells 4.17 10^6/uL (4.0-5.20); Red Cell Distribution Width 16.5 % (11.8-14.3); White Blood Cell 4.9 10^3/uL (4.4-10.8)
[2022-05-25 11:04] LABS: Albumin 3.7 g/dL (3.4-5.0); Calcium 7.8 mg/dL (8.5-10.1); Potassium 3.6 mmol/L (3.5-5.1)
[2022-05-25 11:08] LABS: BUN/Creatinine Ratio 3.1; Bilirubin, Total 0.4 mg/dL (0.2-1.0); Total Protein 7.3 g/dL (6.4-8.2)
[2022-05-25] MEDS ORDERED: SODIUM CHLORIDE 0.9% 500 ML IV ONE (12:30)
[2022-05-25] MEDS ORDERED: cloNIDine HCL 0.1 MG TAB PO ONE (14:00)
[2022-05-25] MEDS ORDERED: MET25T PO (15:29)
[2022-05-25] MEDS ORDERED: MORPHINE SULFATE INJ 2 MG/ml SYRG IV PRN (15:30)
[2022-05-25] MEDS ORDERED: ONDANSETRON HCL 4 MG/2 ML VIAL IV PRN (15:30)
[2022-05-25] MEDS ORDERED: HYDROcodone-ACET 5/325MG TAB PO PRN (15:30)
[2022-05-25] MEDS ORDERED: hydrALAZINE HCL 20 MG/ML VL IV PRN (17:00)
[2022-05-25] MEDS ORDERED: ISOSORBIDE MONONITRATE ER 60 MG TAB PO ONE (17:00)
[2022-05-25] MEDS ORDERED: levoFLOXacin 250MG 50 ML IV SCH (17:30)
[2022-05-25] MEDS: CALCIUM ACETATE 667 MG CAP PO SCH (18:46)
[2022-05-25] MEDS: SODIUM CHLOR 0.9% PF (SALINE LOCK) 10ML VIAL/SYR IV SCH (22:00)
[2022-05-25] MEDS ORDERED: METOPROLOL TARTRATE 25 MG TAB PO SCH (22:00)
[2022-05-25] MEDS: ACCU-CHEK COMFORT CURVE STRIP VI SCH (22:17)
[2022-05-25] MEDS: InsuLIN REG 1unit/0.01ml Soln (100units/ml) SC SCH (22:18)
[2022-05-25] MEDS: PANTOPRAZOLE 40 MG/10 ML VIAL INJ IV SCH (22:35)
[2022-05-25] MEDS: SUCRALFATE 1 GM/10 ML ORAL SUSP PO SCH (22:36)
[2022-05-25] MEDS: METOPROLOL TARTRATE 25 MG TAB PO SCH (22:47)
[2022-05-26] MEDS: DEXTROSE (50%) 50ML SYRG IV PRN ×2 (03:05→22:11)
[2022-05-26] MEDS: SODIUM CHLOR 0.9% PF (SALINE LOCK) 10ML VIAL/SYR IV SCH ×3 (06:19→22:00)
[2022-05-26] MEDS: ACCU-CHEK COMFORT CURVE STRIP VI SCH ×4 (06:41→22:11)
[2022-05-26] MEDS: SUCRALFATE 1 GM/10 ML ORAL SUSP PO SCH ×4 (06:41→23:06)
[2022-05-26] MEDS: InsuLIN REG 1unit/0.01ml Soln (100units/ml) SC SCH ×4 (06:54→22:00)
[2022-05-26 07:31] LABS: Basophils # (auto) 0.1 10 ^3/uL (0-0.2); Basophils % (auto) 1.2 % (0.0-2.0); Eosinophils # (auto) 0.2 10 ^3/uL (0-0.8); Eosinophils % (auto) 2.9 % (0.0-7.0); Hematocrit 36.9 % (36.0-46.0); Hemoglobin 11.8 g/dL (12.2-16.2); Lymphocytes # (auto) 0.7 10 ^3/uL (0.4-5.4); Lymphocytes % (auto) 12.5 % (10.0-50.0); Mean Corpuscular Hemoglobin 29.2 pg (28.0-32.0); Mean Corpuscular Volume 91.4 fL (80.0-100.0); Monocytes # (auto) 0.3 10 ^3/uL (0-1.3); Monocytes % (auto) 5.4 % (0.0-12.0); Neutrophils # (auto) 4.1 10 ^3/uL (1.6-8.6); Red Blood Cells 4.04 10^6/uL (4.0-5.20); Red Cell Distribution Width 16.6 % (11.8-14.3); White Blood Cell 5.3 10^3/uL (4.4-10.8)
[2022-05-26 07:39] LABS: BUN/Creatinine Ratio 3.5; Calcium 7.9 mg/dL (8.5-10.1); Potassium 4.6 mmol/L (3.5-5.1)
[2022-05-26 07:52] LABS: INR 1.24 (0.9-1.15)
[2022-05-26] MEDS: CALCIUM ACETATE 667 MG CAP PO SCH ×3 (08:49→18:51)
[2022-05-26] MEDS: amLODIPine BESYLATE 5 MG TAB PO SCH (10:11)
[2022-05-26] MEDS: METOPROLOL TARTRATE 25 MG TAB PO SCH ×2 (11:11→22:00)
[2022-05-26] MEDS: LISINOPRIL 20 MG TAB PO SCH (11:11)
[2022-05-26] MEDS: PANTOPRAZOLE 40 MG/10 ML VIAL INJ IV SCH ×2 (14:36→23:03)
[2022-05-26] MEDS ORDERED: DEXTROSE 50% SYRINGE 50 ML IV ONE (22:11)
[2022-05-26] MEDS ORDERED: D5W 5% 1,000 ML IV ONE (22:30)
[2022-05-27 04:06] LABS: Basophils # (auto) 0.1 10 ^3/uL (0-0.2); Basophils % (auto) 1.2 % (0.0-2.0); Eosinophils # (auto) 0.1 10 ^3/uL (0-0.8); Eosinophils % (auto) 1.1 % (0.0-7.0); Hematocrit 34.8 % (36.0-46.0); Hemoglobin 11.2 g/dL (12.2-16.2); Lymphocytes # (auto) 0.4 10 ^3/uL (0.4-5.4); Lymphocytes % (auto) 7.8 % (10.0-50.0); Mean Corpuscular Hemoglobin 29.6 pg (28.0-32.0); Mean Corpuscular Hgb Conc. 32.2 g/dL (32.0-36.0); Mean Corpuscular Volume 91.7 fL (80.0-100.0); Monocytes # (auto) 0.2 10 ^3/uL (0-1.3); Monocytes % (auto) 4.2 % (0.0-12.0); Neutrophils # (auto) 4.5 10 ^3/uL (1.6-8.6); Neutrophils % (auto) 85.7 % (37.0-80.0); Nucleated Red Blood Cells % 0.1 %; Red Cell Distribution Width 16.4 % (11.8-14.3); White Blood Cell 5.2 10^3/uL (4.4-10.8)
[2022-05-27 04:20] LABS: Albumin 3.1 g/dL (3.4-5.0); Calcium 7.7 mg/dL (8.5-10.1); Potassium 3.9 mmol/L (3.5-5.1)
[2022-05-27 04:25] LABS: BUN/Creatinine Ratio 3.7; Bilirubin, Total 0.5 mg/dL (0.2-1.0); Total Protein 5.6 g/dL (6.4-8.2)
[2022-05-27] MEDS: SODIUM CHLOR 0.9% PF (SALINE LOCK) 10ML VIAL/SYR IV SCH (06:00)
[2022-05-27] MEDS: ACCU-CHEK COMFORT CURVE STRIP VI SCH ×2 (07:59→11:55)
[2022-05-27] MEDS: CALCIUM ACETATE 667 MG CAP PO SCH ×2 (07:59→12:00)
[2022-05-27] MEDS: InsuLIN REG 1unit/0.01ml Soln (100units/ml) SC SCH ×2 (07:59→11:58)
[2022-05-27] MEDS: SUCRALFATE 1 GM/10 ML ORAL SUSP PO SCH ×2 (07:59→11:54)
[2022-05-27] MEDS: PANTOPRAZOLE 40 MG/10 ML VIAL INJ IV SCH (09:48)
[2022-05-27] MEDS: amLODIPine BESYLATE 5 MG TAB PO SCH (09:48)
[2022-05-27] MEDS: LISINOPRIL 20 MG TAB PO SCH (09:49)
[2022-05-27] MEDS: METOPROLOL TARTRATE 25 MG TAB PO SCH (09:49)
[2022-05-27 09:50] LABS: Magnesium 3.7 mg/dL (1.6-2.6); Phosphorus 3.4 mg/dL (2.5-4.90)
[2022-05-27] MEDS ORDERED: SUCR1TAB PO (10:55)
[2022-05-27] MEDS ORDERED: PANT40TA2 PO (10:55)
[2022-05-27 12:00] VITALS: BP 205/86
[2022-05-27] MEDS ORDERED: METO5TAB67 PO (12:03)
== END 2022-05-28 00:11 | disposition home or self-care (01) | DRG 48 ==
LOC: EDBD 09:09 → ER 09:09 → OVERFLOW 15:25
PROVIDERS: ADMIT Nurse Practitioner Family; ATTEND Hospitalist
DX: E11.43 Type 2 diabetes mellitus with diabetic autonomic (poly)neuropathy (principal); I13.2 Hypertensive heart and chronic kidney disease with heart failure and with stage 5 chronic kidney disease, or end stage renal disease; N18.6 End stage renal disease; E11.649 Type 2 diabetes mellitus with hypoglycemia without coma; E11.22 Type 2 diabetes mellitus with diabetic chronic kidney disease; D63.1 Anemia in chronic kidney disease; K75.9 Inflammatory liver disease, unspecified; K29.70 Gastritis, unspecified, without bleeding; K31.84 Gastroparesis; D72.829 Elevated white blood cell count, unspecified; R19.7 Diarrhea, unspecified; I50.30 Unspecified diastolic (congestive) heart failure; R00.1 Bradycardia, unspecified; Z20.822 Contact with and (suspected) exposure to COVID-19; K21.9 Gastro-esophageal reflux disease without esophagitis; Z79.899 Other long term (current) drug therapy; Z82.49 Family history of ischemic heart disease and other diseases of the circulatory system; Z83.3 Family history of diabetes mellitus; Z90.49 Acquired absence of other specified parts of digestive tract
CPT/HCPCS: 36415; 70450; 71045; 74176; 76705; 80048; 80053; 82306; 82378; 82962; 83036; 83605; 83690; 83735; 83880; 84100; 84484; 85025; 85610; 85730; 93005; 96361; 96374; 96375; 96376; C9113; G0378; J1815; J2405; J3490

== ENCOUNTER 2022-06-24 13:59 | Emergency (ER) | payer MEDICAID ==
[~2022-06-24] VITALS: Ht 160 cm; Wt 60.0 kg
[~2022-06-24 13:59] MED LIST changes: +MET25T PO; +METO5TAB67 PO; +PANT40TA2 PO; +SUCR1TAB PO
[2022-06-24] MEDS ORDERED: ONDANSETRON HCL 4 MG/2 ML VIAL IV ONE (16:45)
[2022-06-24] MEDS ORDERED: MORPHINE SULFATE 4 MG/ML SYR/VIAL IV ONE (16:45)
[2022-06-24] MEDS ORDERED: KETOROLAC TROMETH 30 MG/ML 1ML VIAL IV ONE (16:45)
[2022-06-24] MEDS ORDERED: SODIUM CHLORIDE 0.9% 1,000 ML IV ONE (16:45)
[2022-06-24] MEDS ORDERED: MAGNESIUM SULFATE 1GM/100ML 100 ML IV SCH (17:00)
[2022-06-24 17:07] VITALS: BP 222/100
== END 2022-06-24 17:07 | disposition left against medical advice (07) ==
LOC: EDBD 13:59 → ER 14:01
DX: R55 Syncope and collapse (principal); R94.31 Abnormal electrocardiogram [ECG] [EKG]; I12.0 Hypertensive chronic kidney disease with stage 5 chronic kidney disease or end stage renal disease; E11.22 Type 2 diabetes mellitus with diabetic chronic kidney disease; N18.6 End stage renal disease; Z99.2 Dependence on renal dialysis; Z86.2 Personal history of diseases of the blood and blood-forming organs and certain disorders involving the immune mechanism; Z90.49 Acquired absence of other specified parts of digestive tract; Z79.899 Other long term (current) drug therapy
CPT/HCPCS: 93005

== ENCOUNTER 2023-10-02 12:01 | Emergency (ER) | payer MEDICAID ==
[~2023-10-02] VITALS: Ht 157.5 cm; Wt 58.1 kg
[~2023-10-02 12:01] MED LIST changes: -AMLO-496 PO; +AMLO1TAB23 PO; +GABA-1308 PO; -GABA100C9 PO; +HYDR-4227 PO; -HYDR10TA26 PO; -LISI20TA28 PO; +LISI20TA56 PO
[2023-10-02 13:24] LABS: Basophils # (auto) 0.1 10 ^3/uL (0-0.2); Eosinophils # (auto) 0.2 10 ^3/uL (0-0.8); Hemoglobin 7.1 g/dL (12.2-16.2); Mean Corpuscular Volume 102.6 fL (80.0-100.0); Monocytes # (auto) 0.4 10 ^3/uL (0-1.3)
[2023-10-02 13:25] LABS: Basophils % (auto) 1.2 % (0.0-2.0); Eosinophils % (auto) 4.3 % (0.0-7.0); Hematocrit 22.8 % (36.0-46.0); Lymphocytes # (auto) 0.6 10 ^3/uL (0.4-5.4); Lymphocytes % (auto) 12.6 % (10.0-50.0); Mean Corpuscular Hemoglobin 31.8 pg (28.0-32.0); Monocytes % (auto) 7.9 % (0.0-12.0); Neutrophils # (auto) 3.8 10 ^3/uL (1.6-8.6); Nucleated Red Blood Cells % 0.1 %; Red Blood Cells 2.22 10^6/uL (4.0-5.20); White Blood Cell 5.1 10^3/uL (4.4-10.8)
[2023-10-02 13:35] LABS: Red Cell Distribution Width 20.8 % (11.8-14.3)
[2023-10-02 13:40] LABS: Alanine Aminotransferase 115 U/L (7-40); Alkaline Phosphatase 257 U/L (46-116); Anion Gap 4 (5-15); Aspartate Aminotransferase 74 U/L (13-40); BUN/Creatinine Ratio 4.8 (10.0-20.0); Bilirubin, Total 0.3 mg/dL (0.2-1.0); Blood Urea Nitrogen 19 mg/dL (9-23); Calcium 7.2 mg/dL (8.5-10.1); Carbon Dioxide 30 mmol/L (20-30); Chloride 104 mmol/L (98-107); Glucose 384 mg/dL (74-106); Potassium 4.4 mmol/L (3.5-5.1); Sodium 138 mmol/L (136-145)
[2023-10-02 15:34] LABS: Basophils # (auto) 0.1 10 ^3/uL (0-0.2); Eosinophils # (auto) 0.2 10 ^3/uL (0-0.8); Hemoglobin 7.2 g/dL (12.2-16.2); Lymphocytes # (auto) 0.8 10 ^3/uL (0.4-5.4); Mean Corpuscular Hgb Conc. 32.6 g/dL (32.0-36.0); Monocytes # (auto) 0.4 10 ^3/uL (0-1.3); Neutrophils # (auto) 3.8 10 ^3/uL (1.6-8.6); White Blood Cell 5.3 10^3/uL (4.4-10.8)
[2023-10-02 15:36] LABS: Basophils % (auto) 2.1 % (0.0-2.0); Eosinophils % (auto) 4.1 % (0.0-7.0); Hematocrit 22.1 % (36.0-46.0); Lymphocytes % (auto) 15.4 % (10.0-50.0); Mean Corpuscular Hemoglobin 32.4 pg (28.0-32.0); Mean Corpuscular Volume 99.5 fL (80.0-100.0); Monocytes % (auto) 6.7 % (0.0-12.0); Neutrophils % (auto) 71.7 % (37.0-80.0); Red Blood Cells 2.22 10^6/uL (4.0-5.20)
[2023-10-02 15:37] LABS: Red Cell Distribution Width 20.7 % (11.8-14.3)
[2023-10-02 16:59] VITALS: BP 154/82; PULSE 70; RESP 18; TEMP 97.1; O2SAT 97
== END 2023-10-02 17:01 | disposition home or self-care (01) ==
LOC: ER 12:01
DX: D50.0 Iron deficiency anemia secondary to blood loss (chronic) (principal); E11.22 Type 2 diabetes mellitus with diabetic chronic kidney disease; N18.6 End stage renal disease; R79.89 Other specified abnormal findings of blood chemistry; Z99.2 Dependence on renal dialysis; Z90.49 Acquired absence of other specified parts of digestive tract; Z79.85 Long-term (current) use of injectable non-insulin antidiabetic drugs
CPT/HCPCS: 36415; 80053; 84484; 85025; 86850; 86900; 86901